=== PATIENT | female | born 1950 | race Caucasian/White ===

== ENCOUNTER → 2016-09-28 | Outpatient (REF) | payer MEDICARE | LOC: M SFHCPLAZ 16:58 | PROVIDERS: ATTEND Dermatology | DX: D36.17 Benign neoplasm of peripheral nerves and autonomic nervous system of trunk, unspecified (principal) ==

== ENCOUNTER → 2017-05-09 | Outpatient (CLI) | payer MEDICARE ==
--- NOTE | 2017-05-09 09:57 | REP ---
Bilateral screening digital mammogram: There are no palpable abnormalities or other breast complaints. The patient states she has not had a clinical breast exam in over a year. Comparison is 07/04/2011. The breast parenchyma is very dense, unchanged. There are benign calcifications. There has been no interval development of masses, areas of structural distortion or clusters of microcalcifications typical of malignancy. Impression: There is no evidence of malignancy. BI-RADS/ACR category 2 mammogram. Benign finding(s). The patient should have a repeat mammogram in 1 year. This mammogram was interpreted with the aid of an FDA-approved computer-aided detection system. A. Negative x-ray reports should not delay biopsy if a dominant or clinically suspicious mass is present. B. Not all breast cancers are identified by x-ray. C. Adenosis and dense breasts may obscure an underlying neoplasm. The patient letter being requested is M1.
== END ==
LOC: M WHC 08:01
PROVIDERS: ATTEND Obstetrics & Gynecology
DX: Z12.31 Encounter for screening mammogram for malignant neoplasm of breast (principal)

== ENCOUNTER → 2018-08-29 | Outpatient (CLI) | payer MEDICARE ==
--- NOTE | 2018-08-29 10:32 | REPMRS ---
Patient History The patient states she has not had a clinical breast exam in over a year. Patient is postmenopausal and has history of skin cancer at age 52. No known family history of cancer. Took hormonal contraceptives for 5 years. Taking estrogen for 6 months. 3D TOMOSYNTHESIS WAS PERFORMED. Digital Woman Screen Mammo: August 29, 2018 - Exam #: [id number] Bilateral CC and MLO view(s) were taken. Technologist: Erin hSultz, Technologist Prior study comparison: May 09, 2017, digital woman screen mammo performed at [facility] [employer]. October 19, 2015, digital woman screen mammo performed at [facility] [id number]. FINDINGS: The breast tissue is heterogeneously dense. This may lower the sensitivity of mammography. There has been no change in the appearance of the mammogram from the prior studies. There is a moderate amount of residual fibroglandular tissue which is fairly symmetric. There is no interval development of dominant mass, areas of architectural distortion, or clustered microcalcification typical of malignancy. Assessment: BI-RADS/ACR category 1 mammogram. Negative Mammogram. Recommendation Routine screening mammogram in 1 year (for women over age 40). This mammogram was interpreted with the aid of an FDA-approved computer-aided dectection system. Electronically Signed By: Keo Montiel MD 08/29/18 [id number]
--- NOTE | 2018-08-30 14:20 | DEXA ---
AP SPINE L1 - L4 0.991 -1.6 0.0 LT FEMUR TOTAL 0.839 -1.3 0.0 LT NECK 0.803 -1.7 -0.1 RT FEMUR TOTAL 0.896 -0.9 0.4 RT NECK 0.843 -1.4 0.1 TOTAL BODY TOTAL OTHER COMMENTS: There is low bone density of the spine and hips. The decreased density of the spine does represent a significant change. The increased density of the left hip does not represent a significant change. The increased density of the right hip does not represent a significant change. The density of the spine has decreased 11.5% since the initial exam on 10/24/2005. The spine density has decreased 3.1% since the most recent exam on 10/19/2015. The density of the left hip has decreased 7.2% since the initial exam on 10/24/2005. The density of the left hip has increased 0.2% since the most recent exam on 10/19/2015. The density of the right hip has decreased 6.2% since the initial exam on 10/24/2005. The density of the right hip has increased 1.0% since the most recent exam on 10/19/2015. FOLLOW-UP: Recommendation for the next bone density exam: 2 years. ALYSSIA
== END ==
LOC: M WHC 08:54
PROVIDERS: ATTEND Obstetrics & Gynecology
DX: Z12.31 Encounter for screening mammogram for malignant neoplasm of breast (principal); M81.0 Age-related osteoporosis without current pathological fracture; Z79.890 Hormone replacement therapy

== ENCOUNTER → 2019-08-01 | Outpatient (REF) | payer MEDICARE ==
[2019-08-01 18:40] LABS: INFLUENZA A AMPLIFICATION NEGATIVE (NEGATIVE); INFLUENZA B AMPLIFICATION NEGATIVE (NEGATIVE)
== END ==
LOC: M LAB REF 16:39
PROVIDERS: ATTEND Registered Nurse
DX: R50.9 Fever, unspecified (principal)

== ENCOUNTER → 2019-09-16 | Outpatient (CLI) | payer MEDICARE ==
--- NOTE | 2019-09-16 09:31 | REPMRS ---
Patient History The patient states she had a clinical breast exam in September 2018. No known family history of cancer. Took hormonal contraceptives for 5 years. Taking estrogen for 6 months. Digital Woman Screen Mammo: September 16, 2019 - Exam #: [id number] Bilateral CC and MLO view(s) were taken. Technologist: Kimberley Kong, Technologist Prior study comparison: August 29, 2018, bilateral digital woman screen mammo performed at [facility]. May 09, 2017, digital woman screen mammo performed at [facility]. October 19, 2015, digital woman screen mammo performed at [facility]. FINDINGS: The breast tissue is heterogeneously dense. This may lower the sensitivity of mammography. There is a moderate amount of heterogeneously dense fibroglandular tissue which is fairly symmetric. There is no interval development of dominant mass, architectural distortion, or grouped microcalcification typical of malignancy. There has been no change in the appearance of the mammogram from the prior studies. 3-D tomosynthesis shows no additional findings. Assessment: BI-RADS/ACR category 1 mammogram. Negative Mammogram. Recommendation Routine screening mammogram of both breasts in 1 year (for women over age 40). This patient's Lifetime Breast Cancer RIsk is estimated at 7.1 %. This mammogram was interpreted with the aid of an FDA-approved computer-aided dectection system. Electronically Signed By: Molina Loving MD 09/16/19 [id number]
== END ==
LOC: M WHC 08:31
PROVIDERS: ATTEND Obstetrics & Gynecology
DX: Z12.31 Encounter for screening mammogram for malignant neoplasm of breast (principal)